=== PATIENT | male | born 1975 | race Two or more races ===

== ENCOUNTER 2019-11-25 12:45 | Emergency (ER) | payer OTHER ==
[~2019-11-25] VITALS: Ht 177.8 cm; Wt 120.2 kg
[2019-11-25] MEDS ORDERED: KETOROLAC TROMETH 30 MG/ML 1ML VIAL IV ONE ×2 (13:00→14:15)
[2019-11-25] MEDS ORDERED: SODIUM CHLORIDE 0.9% 1,000 ML IV ONE ×2 (13:00)
[2019-11-25] MEDS ORDERED: ONDANSETRON HCL 4 MG/2 ML VIAL IV ONE (14:15)
[2019-11-25 15:24] LABS: Basophils # (auto) 0 10 ^3/uL (0-0.2); Basophils % (auto) 0.3 % (0.0-2.0); Eosinophils # (auto) 0.1 10 ^3/uL (0-0.8); Eosinophils % (auto) 1.1 % (0.0-7.0); Hematocrit 46.6 % (41.0-53.0); Hemoglobin 15.9 g/dL (13.5-17.5); Lymphocytes # (auto) 1.8 10 ^3/uL (0.4-5.4); Lymphocytes % (auto) 21.6 % (10.0-50.0); Mean Corpuscular Hemoglobin 31.3 pg (28.0-32.0); Mean Corpuscular Hgb Conc. 34.2 g/dL (32.0-36.0); Mean Corpuscular Volume 91.5 fL (80.0-100.0); Monocytes # (auto) 0.6 10 ^3/uL (0-1.3); Monocytes % (auto) 7.1 % (0.0-12.0); Neutrophils # (auto) 5.7 10 ^3/uL (1.6-8.6); Neutrophils % (auto) 69.9 % (37.0-80.0); Platelet Count (auto) 165 10^3/uL (140-450); Red Blood Cells 5.09 10^6/uL (4.5-5.90); Red Cell Distribution Width 13.5 % (11.8-14.3); White Blood Cell 8.2 10^3/uL (4.4-10.8)
[2019-11-25 16:06] LABS: Albumin 3.2 g/dL (3.4-5.0); Anion Gap 6 (5-15); Blood Urea Nitrogen 11 mg/dL (7-18); Calcium 8.2 mg/dL (8.5-10.1); Carbon Dioxide 25 mmol/L (21-32); Chloride 110 mmol/L (98-107); Glucose 100 mg/dL (74-106); Potassium 3.3 mmol/L (3.5-5.1); Sodium 141 mmol/L (136-145)
[2019-11-25 16:08] LABS: Alanine Aminotransferase 33 U/L (16-61); Aspartate Aminotransferase 20 U/L (15-37); BUN/Creatinine Ratio 9.6; GFR African American 88 mL/min; GFR Non-African American 73 mL/min
[2019-11-25 16:14] LABS: Alkaline Phosphatase 74 U/L (45-117); Bilirubin, Total 0.4 mg/dL (0.2-1.0); Total Protein 6.7 g/dL (6.4-8.2)
[2019-11-25 16:23] VITALS: BP 101/83
[2019-11-25 16:30] LABS: Urine Bacteria FEW /hpf (None Seen); Urine Blood Negative /uL (Negative); Urine Specific Gravity 1.013 (1.001-1.035); Urine WBC 1 /hpf (0 - 3)
== END 2019-11-25 17:29 | disposition home or self-care (01) ==
LOC: EDBD 12:45 → ER 12:45
DX: R10.9 Unspecified abdominal pain (principal); E86.0 Dehydration; E87.6 Hypokalemia; K44.9 Diaphragmatic hernia without obstruction or gangrene; E11.9 Type 2 diabetes mellitus without complications; Z87.442 Personal history of urinary calculi; Z88.6 Allergy status to analgesic agent; Z88.5 Allergy status to narcotic agent
CPT/HCPCS: 36415; 71045; 74176; 80053; 81001; 82962; 84484; 85025; 93005; 96361; 96374; 96375; 99285; J1885; J2405; J7030

== ENCOUNTER 2024-08-28 14:09 | Emergency (ER) | payer MEDICAID, OTHER ==
[~2024-08-28] VITALS: Ht 180.3 cm; Wt 108.0 kg
--- NOTE | 2024-08-28 14:35 | ED.PDOC ---
Silvana. trauma (HPI) HPI Comments THIS IS A 48 YEAR OLD MALE PRESENTING TO THE ED WITH CHIEF COMPLAINT OF FLU-LIKE SYMPTOMS AND FALL. PATIENT REPORTS THAT HE HAS BEEN EXPERIENCING A COUGH WITH ASSOCIATED FEVER, SORE THROAT, AND BODY ACHES FOR THE PAST 2 DAYS. PATIENT RELAYS THAT HE WAS AT [facility] THIS AFTERNOON WHEN HE TRIPPED AND FELL ONTO HIS RIGHT SIDE, CAUSING INJURY TO HIS RIGHT LEG AND BACK OF HIS HEAD. PT IS ABLE TO WALK AND STAND WITH NORMAL GAIT. PATIENT DENIES ANY LOC, SOB, CHEST PAIN, CHILLS, OR N/V. NO OTHER SYMPTOMS REPORTED AT THIS TIME OF CARE. Chief Complaint: Fall Injury Time Seen by MD: 14:28 Reviewed notes: Nurses Notes, Medications, Allergies Allergies: Coded Allergies: Fentanyl (Verified Allergy, Unknown, 11/25/19) Morphine (Verified Allergy, Unknown, 11/25/19) Home Meds Active Scripts Azithromycin (Azithromycin) 500 Mg Tab, 1 TAB PO DAILY, #5 TAB Prov:LEONEL GUTIERREZ 08/28/24 Ibuprofen (Ibuprofen) 800 Mg Tab, 1 TAB PO QID, #30 TAB Prov:LEONEL GUTIERREZ 08/28/24 Information Source: Patient Mode of Arrival: Ambulatory Severity: Moderate Timing: Days Duration: Since onset Prehospital treatment: None Location: Head, (R) Leg Mechanism: Fall Associated signs and symtoms: Headache Past Medical History PAST MEDICAL HISTORY: COPD, DM, HTN, Seizures Surgical History: Denies all surgeries Family History Family History: Reviewed,noncontributory to illness Social History Smoker: Non-Smoker Alcohol: Sober Drugs: Denies Drug Use Lives In: Home Constitutional: reports: fever, others (STEVENS ACHES); denies: chills, diaphoresis, fatigue, malaise, sweats, weakness EENTM: reports: nose congestion, throat pain, throat swelling; denies: blurred vision, double vision, ear bleeding, ear discharge, ear drainage, ear pain, ear ringing, eye pain, eye redness, hearing loss, mouth pain, mouth swelling, nasal discharge, nose bleeding, nose pain, photophobia, tearing, voice changes, others Respiratory: reports: cough; denies: hemoptysis, orthopnea, SOB at rest, shortness of breath, SOB with excertion, stridor, wheezing, others Cardiovascular: denies: chest pain, dizzy spells, diaphoresis, Dyspnea on exertion, edema, irregular heart beat, left arm pain, lightheadedness, palpitations, PND, syncope, others Gastrointestinal: denies: abdomen distended, abdominal pain, blood streaked bowels, constipated, diarrhea, dysphagia, difficulty swallowing, hematemesis, melena, nausea, poor appetite, poor fluid intake, rectal bleeding, rectal pain, vomiting, others Genitourinary: denies: burning, dysuria, flank pain, frequency, hematuria, incontinence, penile discharge, penile sore, pain, testicle pain, testicle swelling, urgency, others Neurological: reports: headache; denies: dizziness, fainting, left sided numbness, left sided weakness, numbness, paresthesia, pre-existing deficit, right sided numbness, right sided weakness, seizure, speech problems, tingling, tremors, weakness, others Musculoskeletal: reports: muscle pain, others (RIGHT LEG PAIN); denies: back pain, gout, joint pain, joint swelling, muscle stiffness, neck pain Integumetry: denies: bruises, change in color, change in hair/nails, dryness, laceration, lesions, lumps, rash, wounds, others Allergic/Immunocompromised: denies: Difficulty Healing, Frequent Infections, Hives, Itching, others Hematologic/Lymphatic: reports: anemia (RIGHT LATERAL LOWER LEG. ); denies: blood clots, easy bleeding, easy bruising, swollen glands, others Endocrine: denies: excessive hunger, excessive sweating, excessive thirst, excessive urination, flushing, intolerance to cold, intolerance to heat, unexplained weight gain, unexplained weight loss, others Psychiatric: denies: anxiety, bipolar disorder, depression, hopeless, panic disorder, schizophrenia, sleepless, suicidal, others All Other Systems: Reviewed and Negative Physical Exam General Appearance: No Apparent Distress, Normal HEENT: Head (MILD CONTUSION ON RIGHT SIDE LOWER SCALP, NO BONY TENDERNESS AND DEFORMITY. ), PERRL/EOMI, Pharyngeal Erythema (TONSILLAR SWELLING, NO EXUDATES. ), TMs Normal Neck: Full Range of Motion, Non-Tender, Normal, Normal Inspection Respiratory: Chest Non-Tender, Lungs Clear, No Accessory Muscle Use, No Respiratory Distress, Normal Breath Sounds Cardiovascular: No Edema, No JVD, No Murmur, No Gallop, Normal Peripheral P ulses, Regular Rate/Rhythm Breast Exam: Deferred Gastrointestinal: No Organomegaly, Non Tender, No Pulsatile Mass, Normal Bowel Sounds, Soft Genitalia: Deferred Pelvic: Deferred Rectal: Deferred Extremities: No calf tenderness, Normal capillary refill, Normal range of motion, No pedal edema, Tender (AND CONTUSION ON RIGHT LATERAL LOWER LEG. ) Musculoskeletal : Apperance: Normal Neurologic: Alert, sandwich peddler II-XII nml as Tested, No Motor Deficits, Normal Affect, Normal Mood, No Sensory Deficits Cerebellar Function: Normal Reflexes: Normal Skin: Dry, Normal Color, Warm Peripheral Pulses: 2+ carotid (R), 2+ carotid (L), 2+ dorsalis pedis (R), 2+ dorsalis pedis (L) Lymphatic: No Adenopathy Was a procedure done? Was a procedure done?: No Differential Diagnosis Multiple Trauma: Closed Head Injury, Fractures, Abrasions, Contusion, Other (ACUTE TONSILLITIS ) X-Ray, Labs, Meds, VS Vital Signs Date Time Temp Pulse Resp B/P (MAP) Pulse Ox O2 Delivery O2 Flow Rate FiO2 08/28/24 15:45 100.9 112 18 115/86 (96) 96 100.9 08/28/24 15:45 112 17 96 Room Air 08/28/24 15:28 100.9 08/28/24 14:23 99.7 118 16 145/96 (112) 97 99.7 Lab Test 08/28/24 14:23 Range/Units Group A Streptococcus Rapid Negative Current Medications Medications (Trade) Dose Ordered Sig/Wendy Route Start Time Stop Time Status Last Admin Acetaminophen (Tylenol Tablet) 1,000 mg ONCE ONCE PO 08/28/24 14:30 08/28/24 14:31 DC 08/28/24 15:28 Ceftriaxone Sodium (Rocephin) 1,000 mg ONCE ONCE IM 08/28/24 15:15 08/28/24 15:16 DC 08/28/24 15:28 [place] [id number] Ph: [phone] DIAGNOSTIC IMAGING Diagnostic Imaging Report : [id number] Signed PATIENT: JOSE ALBERTO RUIZ ACCT: [id number] UNIT: [id number] : 1975 LOC: ER ROOM / BED: / AGE / SEX: 48 / M ADM STATUS: REG ER SERVICE 23 ORDERING PHYSICIAN: LEONEL GUTIERREZ PROCEDURE(s): HWOCT - HEAD WITHOUT CONTRAST REASON: FALL ORDER NUMBER(s): [id number], ACCESSION NUMBER(s): [id number] CT HEAD WITHOUT CONTRAST INDICATION: FALL EXAM DATE: 08/28/2024 02:27 PM COMPARISON: None RADIATION DOSE: CTDIvol: 64 mGy, DLP: 1165 mGy*cm PROCEDURE: CT scans of the head were obtained from the vertex to the skull base. Sagittal and coronal reconstructions were provided. All CT scans at this medical facility are performed using dose modulation techniques as appropriate to a performed exam including the following: Automated exposure control was utilized; adjustment of the MA and/or KV according to p atient size; and use of iterative reconstruction technique. FINDINGS: There is sulcal and ventricular prominence. The brainshows normal morphology and arenas-white matter differentiation, without intracranial hemorrhage, extra-axial fluid collection, mass effect or acute large vessel infarct. The ventricles are normal in size. The basal cisterns are patent. The skull and visible facial bones are intact. Left mastoid effusion. The paranasal sinuses and middle ear cavities are well-aerated. The soft tissues of the scalp are unremarkable. IMPRESSION: No acute intracranial abnormality. ATED BY: DOUGIE ANNA MD DICTATED DATE/TIME: 08/28/241499 SIGNED BY: DOUGIE ANNA MD SIGNED DATE/TIME: 08/28/241499 CC: [place] [id number] Ph: [phone] DIAGNOSTIC IMAGING Diagnostic Imaging Report : [id number] Signed PATIENT: JOSE ALBERTO RUIZ ACCT: [id number] UNIT: [id number] : 1975 LOC: ER ROOM / BED: / AGE / SEX: 48 / M ADM STATUS: REG ER SERVICE 23 ORDERING PHYSICIAN: LEONEL GUTIERREZ PROCEDURE(s): RTBFB - R TIB FIB XRAY REASON: FALL ORDER NUMBER(s): [id number], ACCESSION NUMBER(s): [id number] CLINICAL INDICATION: Pain TECHNIQUE: 2 radiographic views of the right tibia/fibula were obtained. Comparison: None FINDINGS/IMPRESSION: There is no evidence of acute fracture or dislocation. The visualized joint space is well maintained. The alignment is anatomical. There is no radiopaque foreign body. ATED BY: YUMIKO WLIEY MD DICTATED DATE/TIME: 08/28/241503 SIGNED BY: YUMIKO WILEY MD SIGNED DATE/TIME: 08/28/241503 CC: [place] [id number] Ph: [phone] DIAGNOSTIC IMAGING Diagnostic Imaging Report : [id number] Signed PATIENT: JOSE ALBERTO RUIZ ACCT: [id number] UNIT: [id number] : 1975 LOC: ER ROOM / BED: / AGE / SEX: 48 / M ADM STATUS: REG ER SERVICE 23 ORDERING PHYSICIAN: LEONEL GUTIERREZ PROCEDURE(s): CXR1 - CHEST XRAY 1 VIEW REASON: COUGH ORDER NUMBER(s): [id number], ACCESSION NUMBER(s): [id number] EXAM: XY CHEST XRAY 1 VIEW Indication: COUGH Technique: Single frontal view of the chest was obtained Comparison: CHEST PORTABLE on DOS: 11/25/19 FINDINGS: Lines and Tubes: None Lungs: No focal consolidation. Pleura: No effusion. No pneumothorax. Cardiomediastinal contours: Unremarkable Bones: No acute osseous abnormality. IMPRESSION: No acute cardiopulmonary disease. ATED BY: YUMIKO WILEY MD DICTATED DATE/TIME: 08/28/241503 SIGNED BY: YUMIKO WILEY MD SIGNED DATE/TIME: 08/28/241503 CC: X-Ray, Labs, Meds, VS Comment EXTERNAL MEDICAL RECORDS REVIEWED: [NONE] INDEPENDENT HISTORIANS: [NONE] SOCIAL DETERMINANTS OF HEALTH: [NONE] LABS ORDERED: STREP SWAB REVIEWED AND INTERPRETED RESULTS: RIGHT TIB/FIB XR, CT HEAD, CHEST XR IMAGING ORDERED: RIGHT TIB/FIB XR, CT HEAD, CHEST XR TREATMENTS ORDERED: TYLENOL 1G PO AND ROCEPHIN 1GM IM PROCEDURES PERFORMED: NONE CRITICAL CARE TIME: NONE I HAVE DISCUSSED THE PATIENT WITH THE ATTENDING PHYSICIAN DR. SCHOFIELD AND HE AGREES WITH THE PATIENT'S PLAN OF CARE AND DISPOSITION. BASED ON HISTORY OF PRESENT ILLNESS, AND PHYSICAL EXAM, PATIENT WILL BE DISCHARGED HOME. DISCUSSED PLAN FOR DISCHARGE HOME WITH RX AZITHROMYCIN AND MOTRIN 600MG. MEDICATION WARNINGS GIVEN. SHARED DECISION MAKING: DISCUSSED WITH PATIENT THAT THEIR WORKUP WAS NORMAL. PATIENT INSTRUCTED TO FOLLOW UP WITH PRIMARY CARE PROVIDER IN 1-2 DAYS FOR RE- EVALUATION OF SYMPTOMS. PATIENT VERBALIZES UNDERSTANDING TO RETURN TO ED FOR NEW OR WORSENING SYMPTOMS OR IF FOLLOW UP WITH PCP CANNOT BE OBTAINED. PATIENT FEELS COMFORTABLE GOING HOME AT THIS TIME. ALL QUESTIONS ADDRESSED AT TIME OF DISCHARGE. Images Reviewed?: Images reviewed and evaluated by me Time of 1ST Reevaluation: 15:28 Reevaluation 1ST: Improved Patient Education/Counseling: Diagnosis, Treatment, Need For Follow Up Family Education/Counseling: Diagnosis, Treatment, No Family Present Medical Screening: No EMC Exist At This Time Departure 1 Departure Time of Disposition: 16:00 Impression: Primary Impression: Scalp contusion Qualified Codes: S00.03XA - Contusion of scalp, initial encounter Additional Impressions: Contusion of right lower leg Qualified Codes: S80.11XA - Contusion of right lower leg, initial encounter Acute tonsillitis Qualified Codes: J03.90 - Acute tonsillitis, unspecified Disposition: 01 HOME / SELF CARE / HOMELESS Condition: Stable Additional Instructions: FOLLOW-UP WITH PCP IN 1 TO 2 DAYS. TAKE MEDICATIONS PRESCRIBED. RETURN TO ED FOR ANY NEW OR WORSENING SYMPTOMS. e-Prescriptions Azithromycin (Azithromycin) 500 Mg Tab 1 TAB PO DAILY, #5 TAB Prov: LEONEL GUTIERREZ 08/28/24 Ibuprofen (Ibuprofen) 800 Mg Tab 1 TAB PO QID, #30 TAB Prov: LEONEL GUTIERREZ 08/28/24 Discharged With: Self Critical Care Note Critical Care Time?: No Stability Stability form required: No Heart Score Heart Score: Heart Score Response (Comments) Value History N/A 0 EKG N/A 0 Age N/A 0 Risk Factors N/A 0 Troponin N/A 0 Total 0 I personally scribed for LEONEL GUTIERREZ ([email or web address]) on 08/28/24 at 14:35. Electronically submitted by Kj Qureshi ([email or web address]). I personally scribed for LEONEL GUTIERREZ ([email or web address]) on 08/28/24 at 15:10. Electronically submitted by Kj Qureshi ([email or web address]). I personally scribed for LEONEL GUTIERREZ ([email or web address]) on 08/28/24 at 15:21. Electronically submitted by Kj Qureshi ([email or web address]). LEONEL GUTIERREZ Aug 28, 2024 14:35
[2024-08-28 14:46] LABS: Rapid Strep A Screen-Throat Negative
--- NOTE | 2024-08-28 15:03 | DVH ---
CT HEAD WITHOUT CONTRAST INDICATION: FALL EXAM DATE: 08/28/2024 02:27 PM COMPARISON: None RADIATION DOSE: CTDIvol: 64 mGy, DLP: 1165 mGy*cm PROCEDURE: CT scans of the head were obtained from the vertex to the skull base. Sagittal and coronal reconstructions were provided. All CT scans at this medical facility are performed using dose modulation techniques as appropriate t o a performed exam including the following: Automated exposure control was utilized; adjustment of th e MA and/or KV according to patient size; and use of iterative reconstruction technique. FINDINGS: There is sulcal and ventricular prominence. The brainshows normal morphology and arenas-whi te matter differentiation, without intracranial hemorrhage, extra-axial fluid collection, mass effect or acute large vessel infarct. The ventricles are normal in size. The basal cisterns are patent. The skull and visible facial bones are intact. Left mastoid effusion. The paranasal sinuses and middle e ar cavities are well-aerated. The soft tissues of the scalp are unremarkable. IMPRESSION: No acute intracranial abnormality.
--- NOTE | 2024-08-28 15:07 | DVH ---
CLINICAL INDICATION: Pain TECHNIQUE: 2 radiographic views of the right tibia/fibula were obtained. Comparison: None FINDINGS/IMPRESSION: There is no evidence of acute fracture or dislocation. The visualized joint space is well maintained. The alignment is anatomical. There is no radiopaque foreign body.
--- NOTE | 2024-08-28 15:07 | DVH ---
EXAM: XY CHEST XRAY 1 VIEW Indication: COUGH Technique: Single frontal view of the chest was obtained Comparison: CHEST PORTABLE on DOS: 11/25/19 FINDINGS: Lines and Tubes: None Lungs: No focal consolidation. Pleura: No effusion. No pneumothorax. Cardiomediastinal contours: Unremarkable Bones: No acute osseous abnormality. IMPRESSION: No acute cardiopulmonary disease.
[2024-08-28] MEDS: LIDOCAINE 1% HCL (LOCAL ANESTH.) INJ 20ML MDV ONE (15:28)
[2024-08-28] MEDS: ACETAMINOPHEN 325 MG TAB PO ONE (15:28)
[2024-08-28] MEDS: cefTRIAXone SOD 1,000 MG VL IM ONE (15:28)
[2024-08-28] MEDS ORDERED: AZIT500T66 PO (15:32)
[2024-08-28] MEDS ORDERED: IBUP-1456 PO (15:32)
[2024-08-28 15:45] VITALS: BP 115/86; PULSE 112; RESP 17; TEMP 100.9; O2SAT 96
[2024-08-28] MEDS ORDERED: ALBU108A5 IN (23:34)
== END 2024-08-28 15:56 | disposition home or self-care (01) ==
LOC: ER 14:09
DX: S00.03XA Contusion of scalp, initial encounter (principal); S80.11XA Contusion of right lower leg, initial encounter; J03.90 Acute tonsillitis, unspecified; J44.9 Chronic obstructive pulmonary disease, unspecified; E11.9 Type 2 diabetes mellitus without complications; I10 Essential (primary) hypertension; Z88.5 Allergy status to narcotic agent; Z79.899 Other long term (current) drug therapy; W01.0XXA Fall on same level from slipping, tripping and stumbling without subsequent striking against object, initial encounter; Y93.89 Activity, other specified; Y92.89 Other specified places as the place of occurrence of the external cause; Y99.8 Other external cause status
CPT/HCPCS: 70450; 71045; 73590; 87070; 87880; 96372; 99285; J0696; J2003

== ENCOUNTER 2024-08-28 22:05 | Emergency (ER) | payer MEDICAID ==
[~2024-08-28] VITALS: Ht 180.3 cm; Wt 108.0 kg
[~2024-08-28 22:05] MED LIST: AZIT500T66 PO; IBUP-1456 PO
--- NOTE | 2024-08-28 22:52 | ED.PDOC ---
SOB-HPI HPI Comments PATIENT C/O FLU LIKE SYMPTOMS, COUGH, SOB, BODY ACHES. WAS SEEN HERE TODAY, PRESCRIBED A Z PACK, GIVEN ROCEPHIN SHOT. PT STATES SYMPTOMS HAVE NOT IMPROVED. Chief Complaint: Flu like Time Seen by MD: 22:21 Reviewed notes: Nurses Notes, Medications, Allergies Information Source: Patient Mode of Arrival: Ambulatory Past Medical History PAST MEDICAL HISTORY: COPD, DM, HTN, Seizures Surgical History: Denies all surgeries Family History Family History: Reviewed,noncontributory to illness Social History Smoker: Non-Smoker Alcohol: Sober Drugs: Denies Drug Use Lives In: Home Constitutional: denies: chills, diaphoresis, fatigue, fever, malaise, sweats, weakness, others EENTM: denies: blurred vision, double vision, ear bleeding, ear discharge, ear drainage, ear pain, ear ringing, eye pain, eye redness, hearing loss, mouth pain, mouth swelling, nasal discharge, nose bleeding, nose congestion, nose pain, photophobia, tearing, throat pain, throat swelling, voice changes, others Respiratory: reports: cough, wheezing; denies: hemoptysis, orthopnea, SOB at rest, shortness of breath, SOB with excertion, stridor, others Cardiovascular: denies: chest pain, dizzy spells, diaphoresis, Dyspnea on exertion, edema, irregular heart beat, left arm pain, lightheadedness, palpitations, PND, syncope, others Gastrointestinal: denies: abdomen distended, abdominal pain, blood streaked bowels, constipated, diarrhea, dysphagia, difficulty swallowing, hematemesis, melena, nausea, poor appetite, poor fluid intake, rectal bleeding, rectal pain, vomiting, others Genitourinary: denies: burning, dysuria, flank pain, frequency, hematuria, incontinence, penile discharge, penile sore, pain, testicle pain, testicle swelling, urgency, others Neurological: denies: dizziness, fainting, headache, left sided numbness, left sided weakness, numbness, paresthesia, pre-existing deficit, right sided numbness, right sided weakness, seizure, speech problems, tingling, tremors, weakness, others Musculoskeletal: denies: back pain, gout, joint pain, joint swelling, muscle pain, muscle stiffness, neck pain, others Integumetry: denies: bruises, change in color, change in hair/nails, dryness, laceration, lesions, lumps, rash, wounds, others Allergic/Immunocompromised: denies: Difficulty Healing, Frequent Infections, Hives, Itching, others Hematologic/Lymphatic: denies: anemia, blood clots, easy bleeding, easy bruising, swollen glands, others Endocrine: denies: excessive hunger, excessive sweating, excessive thirst, excessive urination, flushing, intolerance to cold, intolerance to heat, unexplained weight gain, unexplained weight loss, others Psychiatric: denies: anxiety, bipolar disorder, depression, hopeless, panic disorder, schizophrenia, sleepless, suicidal, others Physical Exam General Appearance: No Apparent Distress, Normal HEENT: Normal ENT Inspection, Pharynx Normal, TMs Normal Neck: Full Range of Motion, Non-Tender Respiratory: Chest Non-Tender, No Accessory Muscle Use, No Respiratory Distress, Wheezing Cardiovascular: No Murmur, Normal Peripheral Pulses, Regular Rate/Rhythm Breast Exam: Deferred Gastrointestinal: Non Tender, Soft Genitalia: Deferred Pelvic: Deferred Rectal: Deferred Extremities: Normal range of motion Musculoskeletal : Apperance: Normal Neurologic: Alert, No Motor Deficits, Normal Affect, Normal Mood, No Sensory Deficits Cerebellar Function: Normal Reflexes: Normal Skin: Dry, Normal Color, Warm Lymphatic: No Adenopathy Was a procedure done? Was a procedure done?: No Differential Dx Differential Diagnosis: Asthma, Bronchitis, Pneumonia, Allergic Rhinitis, P haryngitis, URI X-Ray, Labs, Meds, VS Vital Signs Date Time Temp Pulse Resp B/P (MAP) Pulse Ox O2 Delivery O2 Flow Rate FiO2 08/28/24 23:42 98.2 90 17 121/89 (100) 97 98.2 08/28/24 23:42 90 17 97 Room Air 08/28/24 23:12 18 98 Room Air* 0 21 08/28/24 22:15 98.9 86 18 126/88 (101) 97 98.9 X-Ray, Labs, Meds, VS Comment Patient given a duo neb reports some improvement requesting discharge at this time. Chest x-ray shows no acute cardiopulmonary findings. We will script trial of albuterol advised to continue the Z-Miguel. Rest increase p.o. fluids with electrolytes. Follow up with your PCP within 2-3 days as necessary. ER return precautions given patient indicates understanding agrees with discharge plan of care Time of 1ST Reevaluation: 22:45 Reevaluation 1ST: Unchanged Time of 2ND Reevaluation: 23:34 Reevaluation 2ND: Improved Patient Education/Counseling: Diagnosis, Treatment, Prognosis, Need For Follow Up Family Education/Counseling: No Family Present SEPSIS Sepsis Screen Date sepsis recognized/suspect: Aug 28, 2024 Time Sepsis recognized/suspect: 2214 Recent Procedure: No On Antibiotic Therapy: No Respiratory Rate >20: No Heart Rate >90: No Temp<36 C (96.8 F) or >38.3 C: No SBP <90 or MAP <65 mmHG: No New Acute Mental Status Change: No Is the patient on CPAP, BIPAP,: No Physician Orders Med Neb Initial Treatment (08/28/24 22:21) Vital Signs Date Time Temp Pulse Resp B/P (MAP) Pulse Ox O2 Delivery O2 Flow Rate FiO2 08/28/24 23:42 98.2 90 17 121/89 (100) 97 98.2 08/28/24 23:42 90 17 97 Room Air 08/28/24 23:12 18 98 Room Air* 0 21 08/28/24 22:15 98.9 86 18 126/88 (101) 97 98.9 Departure 1 Departure Time of Disposition: 23:31 Impression: Primary Impression: Bronchitis Disposition: 01 HOME / SELF CARE / HOMELESS Condition: Stable e-Prescriptions Albuterol Sulfate (Albuterol Sulfate Hfa) 108 Mcg/Act Aer 108 MCG IN Q4HP PRN for 14 Days, #1 INHALER Prov: DOLORES MAYA 08/28/24 Discharged With: Self Critical Care Note Critical Care Time?: No Stability Stability form required: No Heart Score Heart Score: Heart Score Response (Comments) Value History N/A 0 EKG N/A 0 Age 45-64 1 Risk Factors N/A 0 Troponin N/A 0 Total 1 DOLORES MAYA Aug 28, 2024 22:52
[2024-08-28] MEDS: ALBUTEROL SULF 2.5 MG/0.5ML(0.5%) NEB SOLN NEB ONE (23:09)
[2024-08-28] MEDS: IPRATROPIUM BROM 0.5 MG/2.5ML INH SOL NEB ONE (23:10)
[2024-08-28] MEDS ORDERED: ALBU108A5 IN (23:34)
[2024-08-28 23:42] VITALS: BP 121/89; PULSE 90; RESP 17; TEMP 98.2; O2SAT 97
== END 2024-08-28 23:46 | disposition home or self-care (01) ==
LOC: ER 22:05
DX: J44.89 Other specified chronic obstructive pulmonary disease (principal); I10 Essential (primary) hypertension; E11.9 Type 2 diabetes mellitus without complications
CPT/HCPCS: 94640

== ENCOUNTER 2024-08-29 03:07 | Emergency (ER) | payer MEDICAID ==
[~2024-08-29 03:07] MED LIST changes: +ALBU108A5 IN
== END 2024-08-29 03:17 | disposition left against medical advice (07) ==
LOC: ER 03:07
DX: R50.9 Fever, unspecified (principal); Z53.21 Procedure and treatment not carried out due to patient leaving prior to being seen by health care provider

== ENCOUNTER 2025-01-06 09:06 | Emergency (ER) | payer MEDICAID ==
[~2025-01-06] VITALS: Ht 180.3 cm; Wt 105.2 kg
[~2025-01-06 09:06] MED LIST changes: -ALBU108A5 IN; +ALPR1TAB2 PO; +DOXY1CAP57 PO; +HYDR-4902 PO; +LINE1TAB6 PO; +TAMS-35 PO
[2025-01-06 09:09] VITALS: BP 126/88; PULSE 71; RESP 18; TEMP 98.5; O2SAT 98
--- NOTE | 2025-01-06 10:02 | ED.PDOC ---
History of Present Illness HPI Comments 49 year old male with PMHx HTN, DM presents to the ED with a chief complaint of wound check onset today. Patient states he has been experiencing wound to LT buttock, had an abscess that was drained and cultured, was discharged from [facility] on 12/30/24, was set up with home health nurse in [place], [place], decided to leave because his PCP is in [place]. Patient came to ED requesting to speak with medical social consultant, set up a different home health care. Denies fever, chills, nausea, vomiting, diarrhea, abdominal pain, headache, dizziness, chest pain, shortness of breath. No other symptoms or modifying factors present at this time. Chief Complaint: Wound Check Time Seen by MD: 09:45 Reviewed Notes: Medications, Allergies Allergies: Coded Allergies: Morphine (Verified Allergy, Severe, 08/09/24) Shellfish Allergy (Verified Allergy, Unknown, 11/03/24) Uncoded Allergies: contrast (Allergy, Unknown, 10/18/24) Home Meds Active Scripts Doxycycline Monohydrate (Doxycycline Monohydrate) 100 Mg Cap, 1 CAP PO BID for 7 Days, #28 CAP Prov:CHERY MCKEON MD 12/15/24 Hydrocodone-Acetaminophen (Hydrocodone Bitartrate/AC 5-325 mg) 1 Tab Tab, 1 TAB PO TIDP PRN for 7 Days, #21 TAB 0 Refills Prov:JANET GOOD MD 11/05/24 Hydrocodone-Acetaminophen (Hydrocodone Bitartrate/AC 5-325 mg) 1 Tab Tab, 1 TAB PO Q4HP PRN, #20 TAB Prov:KE PARKER MD 11/01/24 Alprazolam (Xanax) 1 Mg Tab, 1 TAB PO BID PRN, #30 TAB Prov:SIVA TINOCO MD 10/22/24 Ibuprofen (Ibuprofen) 800 Mg Tab, 1 TAB PO TID, #30 TAB Prov:LEONEL GUTIERREZ 10/01/24 Reported Medications Prednisone (Prednisone) 20 Mg Tab, 2 TAB PO DAILY 10/27/24 Albuterol Sulfate (Albuterol Sulfate Hfa) 108 Mcg/Act Aer, 2 PUFF INH Q6HPRN PRN for wheezing 10/27/24 Levetiracetam (Levetiracetam) 250 Mg Tab, 1 PO BID 10/27/24 Levetiracetam (Levetiracetam) 500 Mg Tab, 1 TAB PO BID 10/08/24 Albuterol Sulfate (Albuterol Sulfate) 2 Mg Tab, 2 MG PO Q6HP PRN for SHORTNESS OF BREATH, MG 08/20/24 Information Source: Patient Mode of Arrival: Ambulatory Severity: Moderate Timing: Hours Duration: Since onset Prehospital treatment: None Past Medical History PAST MEDICAL HISTORY: Asthma, COPD, DM, HTN, Seizures Surgical History: Cholecystectomy, Hernia Repair Family History Family History: Reviewed,noncontributory to illness, Family hx of heart taz Social History Smoker: Non-Smoker Alcohol: Denies ETOH Use Drugs: Denies Drug Use Lives In: Assisted Care Constitutional: denies: chills, diaphoresis, fatigue, fever, malaise, sweats, weakness, others EENTM: denies: blurred vision, double vision, ear bleeding, ear discharge, ear drainage, ear pain, ear ringing, eye pain, eye redness, hearing loss, mouth pain, mouth swelling, nasal discharge, nose bleeding, nose congestion, nose pain, photophobia, tearing, throat pain, throat swelling, voice changes, others Respiratory: denies: cough, hemoptysis, orthopnea, SOB at rest, shortness of breath, SOB with excertion, stridor, wheezing, others Cardiovascular: denies: chest pain, dizzy spells, diaphoresis, Dyspnea on exer tion, edema, irregular heart beat, left arm pain, lightheadedness, palpitations, PND, syncope, others Gastrointestinal: denies: abdomen distended, abdominal pain, blood streaked bowels, constipated, diarrhea, dysphagia, difficulty swallowing, hematemesis, melena, nausea, poor appetite, poor fluid intake, rectal bleeding, rectal pain, vomiting, others Genitourinary: denies: burning, dysuria, flank pain, frequency, hematuria, incontinence, penile discharge, penile sore, pain, testicle pain, testicle swelling, urgency, others Neurological: denies: dizziness, fainting, headache, left sided numbness, left sided weakness, numbness, paresthesia, pre-existing deficit, right sided numbness, right sided weakness, seizure, speech problems, tingling, tremors, weakness, others Musculoskeletal: denies: back pain, gout, joint pain, joint swelling, muscle pain, muscle stiffness, neck pain, others Integumetry: reports: wounds (buttock); denies: bruises, change in color, change in hair/nails, dryness, laceration, lesions, lumps, rash, others Allergic/Immunocompromised: denies: Difficulty Healing, Frequent Infections, Hives, Itching, others Hematologic/Lymphatic: denies: anemia, blood clots, easy bleeding, easy bruising, swollen glands, others Endocrine: denies: excessive hunger, excessive sweating, excessive thirst, excessive urination, flushing, intolerance to cold, intolerance to heat, unexplained weight gain, unexplained weight loss, others Psychiatric: denies: anxiety, bipolar disorder, depression, hopeless, panic disorder, schizophrenia, sleepless, suicidal, others All Other Systems: Reviewed and Negative Physical Exam General Appearance: Moderate Distress, Normal HEENT: Normal ENT Inspection, Pharynx Normal, TMs Normal Neck: Full Range of Motion, Non-Tender, Normal, Normal Inspection Respiratory: Chest Non-Tender, Lungs Clear, No Accessory Muscle Use, No Respiratory Distress, Normal Breath Sounds Cardiovascular: No Edema, No JVD, No Murmur, No Gallop, Normal Peripheral Pulses, Regular Rate/Rhythm Breast Exam: Deferred Gastrointestinal: No Organomegaly, Non Tender, No Pulsatile Mass, Normal Bowel Sounds, Soft Genitalia: Deferred Pelvic: Deferred Rectal: Deferred Extremities: No calf tenderness, Normal capillary refill, Normal inspection, Normal range of motion, Non-tender, No pedal edema Musculoskeletal : Apperance: Normal Neurologic: Alert, panel maker II-XII nml as Tested, No Motor Deficits, Normal Affect, Normal Mood, No Sensory Deficits Cerebellar Function: Normal Reflexes: Normal Skin: Dry, Normal Color, Warm Peripheral Pulses: 3+ Radial (R), 3+ Radial (L) Lymphatic: No Adenopathy Was a procedure done? Was a procedure done?: No Differential Dx Considerations may include: Wound care X-Ray, Labs, Meds, VS Vital Signs Date Time Temp Pulse Resp B/P (MAP) Pulse Ox O2 Delivery O2 Flow Rate FiO2 01/06/25 09:09 98.5 71 18 126/88 98 98.5 Patient alert. Vitals stable. Answering questions. Ambulating. Has been here many times for same condition. No sign of any severe infection. Patient does not take care himself. For the risk of future injury he was started on antibiotics for prevention. Was given prescription of amoxicillin clindamycin antibiotic. Was told to follow up with his primary care physician. Was told to come back if there is any problem. Time of 1ST Reevaluation: 10:15 Reevaluation 1ST: Unchanged Patient Education/Counseling: Diagnosis, Treatment, Prognosis Family Education/Counseling: No Family Present SEPSIS Sepsis Screen Date sepsis recognized/suspect: Jan 06, 2025 Time Sepsis recognized/suspect: 915 Recent Procedure: Yes On Antibiotic Therapy: Yes Respiratory Rate >20: No Heart Rate >90: No Temp<36 C (96.8 F) or >38.3 C: No SBP <90 or MAP <65 mmHG: No New Acute Mental Status Change: No Is the patient on CPAP, BIPAP,: No Vital Signs Date Time Temp Pulse Resp B/P (MAP) Pulse Ox O2 Delivery O2 Flow Rate FiO2 01/06/25 09:09 98.5 71 18 126/88 98 98.5 Departure 1 Departure Time of Disposition: 10:28 Impression: Primary Impression: Cellulitis Qualified Codes: L03.317 - Cellulitis of buttock Disposition: 01 HOME / SELF CARE / HOMELESS Condition: Good e-Prescriptions Clindamycin Hcl (Clindamycin Hcl) 300 Mg Cap 1 CAP PO TID, #30 CAP Prov: BALA RAMOS MD 01/06/25 Amoxicillin Trihydrate (Amoxicillin) 500 Mg Cap 1 CAP PO TID for 10 Days, #30 CAP Prov: BALA RAMOS MD 01/06/25 Discharged With: Self Critical Care Note Critical Care Time?: No Stability Stability form required: No Heart Score Heart Score: Heart Score Response (Comments) Value History N/A 0 EKG N/A 0 Age N/A 0 Risk Factors N/A 0 Troponin N/A 0 Total 0 I personally scribed for BALA RAMOS MD ([email or web address]) on 01/06/25 at 10:02. Electronically submitted by Jana Romo ([email or web address]). I personally scribed for BALA RAMOS [email or web address]) on 01/06/25 at 10:03. Electronically submitted by Jana Romo [email or web address]). BALA RAMOS MD Jan 06, 2025 10:02
[2025-01-06] MEDS ORDERED: AMOX500C2 PO (10:29)
[2025-01-06] MEDS ORDERED: CLIN1CAP70 PO (10:29)
== END 2025-01-06 12:19 | disposition left against medical advice (07) ==
LOC: EDUNIT# 09:06 → ER 09:06
DX: L03.317 Cellulitis of buttock (principal); I10 Essential (primary) hypertension; E11.9 Type 2 diabetes mellitus without complications; J44.89 Other specified chronic obstructive pulmonary disease; Z79.899 Other long term (current) drug therapy; Z98.890 Other specified postprocedural states; Z90.49 Acquired absence of other specified parts of digestive tract; Z88.5 Allergy status to narcotic agent; Z79.52 Long term (current) use of systemic steroids; Z79.1 Long term (current) use of non-steroidal anti-inflammatories (NSAID)

== ENCOUNTER 2025-01-06 17:47 | Emergency (ER) | payer MEDICAID ==
[~2025-01-06] VITALS: Ht 180.3 cm; Wt 107.7 kg
[~2025-01-06 17:47] MED LIST changes: +AMOX500C2 PO; +CLIN1CAP70 PO
[2025-01-06] MEDS: KETOROLAC TROMETH 30 MG/ML 1ML VIAL IV ONE (19:45)
--- NOTE | 2025-01-06 19:47 | ED.PDOC ---
GI ASSESSMENT HPI Comments 49-year-old male presents to ER with complaints of flank pain x1 day. Patient reports that he has been experiencing bilateral flank pain, intermittent nausea, dysuria and inability to urinate since 1:00 a.m. this morning. He rates his current pain a 10/10. Denies use of medications for current symptoms and states he does have history of a left-sided kidney stone. Patient was recently discharged from ER here earlier today and failed to mention these symptoms at that time. Patient also denies need for social work consult. Denies fever, body aches, chills, vomiting, night sweats, abdominal/pelvic pain, further changes in urination or any further symptoms/complaints Chief Complaint: Wound Check Time Seen by MD: 18:09 Primary Care Provider: UNKNOWN Reviewed Notes: Nurses Notes, Medications, Allergies Allergies: Coded Allergies: Morphine (Verified Allergy, Severe, 08/09/24) Shellfish Allergy (Verified Allergy, Unknown, 11/03/24) Uncoded Allergies: contrast (Allergy, Unknown, 10/18/24) Home Meds Active Scripts Clindamycin Hcl (Clindamycin Hcl) 300 Mg Cap, 1 CAP PO TID, #30 CAP Prov:BALA RAMOS MD 01/06/25 Amoxicillin Trihydrate (Amoxicillin) 500 Mg Cap, 1 CAP PO TID for 10 Days, #30 CAP Prov:BALA RAMOS MD 01/06/25 Doxycycline Monohydrate (Doxycycline Monohydrate) 100 Mg Cap, 1 CAP PO BID for 7 Days, #28 CAP Prov:CHERY MCKEON MD 12/15/24 Hydrocodone-Acetaminophen (Hydrocodone Bitartrate/AC 5-325 mg) 1 Tab Tab, 1 TAB PO TIDP PRN for 7 Days, #21 TAB 0 Refills Prov:JANET GOOD MD 11/05/24 Hydrocodone-Acetaminophen (Hydrocodone Bitartrate/AC 5-325 mg) 1 Tab Tab, 1 TAB PO Q4HP PRN, #20 TAB Prov:KE PARKER MD 11/01/24 Alprazolam (Xanax) 1 Mg Tab, 1 TAB PO BID PRN, #30 TAB Prov:SIVA TINOCO MD 10/22/24 Ibuprofen (Ibuprofen) 800 Mg Tab, 1 TAB PO TID, #30 TAB Prov:BRENDAYINHERB DARSHAN 10/01/24 Reported Medications Prednisone (Prednisone) 20 Mg Tab, 2 TAB PO DAILY 10/27/24 Albuterol Sulfate (Albuterol Sulfate Hfa) 108 Mcg/Act Aer, 2 PUFF INH Q6HPRN PRN for wheezing 10/27/24 Levetiracetam (Levetiracetam) 250 Mg Tab, 1 PO BID 10/27/24 Levetiracetam (Levetiracetam) 500 Mg Tab, 1 TAB PO BID 10/08/24 Albuterol Sulfate (Albuterol Sulfate) 2 Mg Tab, 2 MG PO Q6HP PRN for SHORTNESS OF BREATH, MG 08/20/24 Mode of Arrival: Ambulatory Past Medical History PAST MEDICAL HISTORY: Asthma, COPD, DM, HTN, Kidney Stones, Seizures Surgical History: Cholecystectomy, Hernia Repair Family History Family History: Unknown, Family hx of heart taz Social History Smoker: Non-Smoker Alcohol: Denies ETOH Use Drugs: Denies Drug Use Lives In: Assisted Care Constitutional: denies: chills, diaphoresis, fatigue, fever, malaise, sweats, weakness, others EENTM: denies: blurred vision, double vision, ear bleeding, ear discharge, ear drainage, ear pain, ear ringing, eye pain, eye redness, hearing loss, mouth pain, mouth swelling, nasal discharge, nose bleeding, nose congestion, nose pain, photophobia, tearing, throat pain, throat swelling, voice changes, others Respiratory: denies: cough, hemoptysis, orthopnea, SOB at rest, shortness of breath, SOB with excertion, stridor, wheezing, others Cardiovascular: denies: chest pain, dizzy spells, diaphoresis, Dyspnea on e xertion, edema, irregular heart beat, left arm pain, lightheadedness, palpitations, PND, syncope, others Gastrointestinal: reports: others (As stated in HPI) Genitourinary: reports: others (As stated in HPI) Neurological: denies: dizziness, fainting, headache, left sided numbness, left sided weakness, numbness, paresthesia, pre-existing deficit, right sided numbness, right sided weakness, seizure, speech problems, tingling, tremors, weakness, others Musculoskeletal: denies: back pain, gout, joint pain, joint swelling, muscle pain, muscle stiffness, neck pain, others Integumetry: denies: bruises, change in color, change in hair/nails, dryness, laceration, lesions, lumps, rash, wounds, others Allergic/Immunocompromised: denies: Difficulty Healing, Frequent Infections, Hives, Itching, others Hematologic/Lymphatic: denies: anemia, blood clots, easy bleeding, easy bruising, swollen glands, others Endocrine: denies: excessive hunger, excessive sweating, excessive thirst, excessive urination, flushing, intolerance to cold, intolerance to heat, unexplained weight gain, unexplained weight loss, others Psychiatric: denies: anxiety, bipolar disorder, depression, hopeless, panic disorder, schizophrenia, sleepless, suicidal, others Physical Exam General Appearance: No Apparent Distress, Obese HEENT: PERRL/EOMI Neck: Full Range of Motion, Non-Tender, Normal Respiratory: Chest Non-Tender, Lungs Clear, No Accessory Muscle Use, No Respiratory Distress, Normal Breath Sounds Cardiovascular: No Murmur, No Gallop, Regular Rate/Rhythm Breast Exam: Deferred Gastrointestinal: Non Tender, No Pulsatile Mass, Soft Genitalia: Deferred Pelvic: Deferred Rectal: Deferred Extremities: Normal capillary refill, Normal range of motion Musculoskeletal : Extremity Location: Back (Slight TTP to bilateral flanks noted. No CVA tenderness noted bilaterally) Neurologic: Alert, biotechnologist II-XII nml as Tested, No Motor Deficits, Normal Affect, Normal Mood, No Sensory Deficits Cerebellar Function: Normal Reflexes: Normal Skin: Dry, Normal Color, Warm Peripheral Pulses: 2+ Radial (R), 2+ Radial (L), 2+ Brachial (R), 2+ Brachial (L) Lymphatic: No Adenopathy Was a procedure done? Was a procedure done?: No Sedation Sedation?: No GI differential Dx Differential Diagnosis: GI hemorrhage, Ischemic Bowel, Trauma intraabdominal, Urinary Obstruction, UTI, Urolithiasis X-Ray, Labs, Meds, VS Vital Signs Date Time Temp Pulse Resp B/P (MAP) Pulse Ox O2 Delivery O2 Flow Rate FiO2 01/06/25 20:29 98.3 63 18 108/74 (85) 95 98.3 01/06/25 17:56 97.5 78 16 131/80 100 97.5 Lab Test 01/06/25 21:00 01/06/25 19:58 Range/Units Urine Color Yellow Yellow Urine Clarity Clear Clear Urine pH 6.0 5.0-9.0 Urine Specific [place] 1.021 1.001-1.035 Urine Protein Negative Negative Urine Ketones Trace Negative Urine Blood Negative Negative /uL Urine Nitrite Negative Negative Urine Bilirubin Negative Negative Urine Urobilinogen Normal Negative mg/dL Urine Leukocyte Esterase Negative Negative /uL Urine RBC 2 0 - 3 /hpf Urine Microscopic WBC 5 H 0-3 /HPF Urine Squamous Epithelial Cells Few <5 /hpf Urine Bacteria None seen None Seen /hpf Urine Mucus Few None Seen Urine Glucose Normal Normal mg/dL White Blood Count 7.5 4.4-10.8 10^3/uL Red Blood Count 4.90 4.5-5.90 10^6/uL Hemoglobin 15.5 13.5-17.5 g/dL Hematocrit 44.3 41.0-53.0 % Mean Corpuscular Volume 90.4 80.0-100.0 fL Mean Corpuscular Hemoglobin 31.6 28.0-32.0 pg Mean Corpuscular Hemoglobin Concent 35.0 32.0-36.0 g/dL Red Cell Distribution Width 13.2 11.8-14.3 % Platelet Count 177 140-450 10^3/uL Mean Platelet Volume 9.4 6.9-10.8 fL Neutrophils (%) (Auto) 60.0 37.0-80.0 % Lymphocytes (%) (Auto) 29.3 10.0-50.0 % Monocytes (%) (Auto) 7.7 0.0-12.0 % Eosinophils (%) (Auto) 2.6 0.0-7.0 % Basophils (%) (Auto) 0.4 0.0-2.0 % Neutrophils # (Auto) 4.5 1.6-8.6 10 ^3/uL Lymphocytes # (Auto) 2.2 0.4-5.4 10 ^3/uL Monocytes # (Auto) 0.6 0-1.3 10 ^3/uL Eosinophils # (Auto) 0.2 0-0.8 10 ^3/uL Basophils # (Auto) 0 0-0.2 10 ^3/uL Nucleated Red Blood Cells 0.2 % Sodium Level 146 H 136-145 mmol/L Potassium Level 4.0 3.5-5.1 mmol/L Chloride Level 109 H 98-107 mmol/L Carbon Dioxide Level 28 20-31 mmol/L Anion Gap 9 5-15 Blood Urea Nitrogen 12 9-23 mg/dL Creatinine 1.24 0.700-1.30 mg/dL Glomerular Filtration Rate Calc 70 >90 mL/min BUN/Creatinine Ratio 9.7 L 10.0-20.0 Serum Glucose 98 74-106 mg/dL Calcium Level 9.5 8.7-10.4 mg/dL Current Medications Medications (Trade) Dose Ordered Sig/Wendy Route Start Time Stop Time Status Last Admin Ketorolac Tromethamine (Toradol Injection) 30 mg ONCE ONCE IV 01/06/25 19:45 01/06/25 19:46 DC 01/06/25 19:45 Ondansetron HCl (Zofran Po) 4 mg ONCE ONCE PO 01/06/25 19:45 01/06/25 19:46 DC 01/06/25 20:30 Sodium Chloride 1,000 ml @ 1,000 mls/hr Q1H ONCE IV 01/06/25 20:30 01/06/25 21:29 DC 01/06/25 20:36 PATIENT: JOSE ALBERTO RUIZ ACCT: [id number] UNIT: [id number] : 1975 LOC: ER ROOM / BED: / AGE / SEX: 49 / M ADM STATUS: REG ER SERVICE 32 ORDERING PHYSICIAN: LISBETH CESPEDES PROCEDURE(s): ABPL - CT AB PEL WO CON-NO ORAL OR IV REASON: bilateral flank pain ORDER NUMBER(s): [id number], ACCESSION NUMBER(s): [id number] CLINICAL HISTORY: bilateral flank pain TECHNIQUE: CT of the abdomen and pelvis was performed without intravenous contrast. This exam was performed according to our departmental dose optimization program. Up-to-date CT equipment and radiation dose reduction techniques are utilized as appropriate. CTDI: 26.17 DLP: 1530.96 WID: COMPARISON: CT ABD/PEL on DOS: 10/07/2024 FINDINGS: Lower Thorax: Unremarkable. Liver and Biliary system: Prior cholecystectomy, otherwise unremarkable. Spleen: Unremarkable. Adrenal Glands and Kidneys: Normal adrenal glands. There is a cyst in the lower pole left kidney. No hydronephrosis or nephrolithiasis. Pancreas and Retroperitoneum: Unremarkable. Aorta and Major Vessels: Unremarkable. Bowel, Mesentery and Peritoneal space: Normal caliber small and large bowel. Mild colonic diverticulosis. Normal appendix. No free air or fluid collection. Pelvis: Soft tissue at the origin of the left inguinal canal. Mild prostato megaly. Urinary bladder is mildly distended. There is no pelvic lymphadenopathy. Abdominal wall and Osseous Structures: Prior mesh repair of the midline anterior abdominal wall at the level of the umbilicus. No destructive osseous lesion. Minor lower thoracic and lumbar spondylosis. No destructive osseous lesion. IMPRESSION: 1. No hydronephrosis or nephrolithiasis. 2. No bowel obstruction, fluid collection, or free air. Normal appendix. 3. Mild prostatomegaly. 4. Mild colonic diverticulosis. 5. Prior mesh repair of the midline anterior abdominal wall at the level of the umbilicus and soft tissue plaque at the origin of the left inguinal canal ATED BY: WASHINGTON CABRERA MD DICTATED DATE/TIME: 01/06/252018 SIGNED BY: WASHINGTON CABRERA MD SIGNED DATE/TIME: 01/06/252018 CC: CBC reviewed without any significant abnormalities BMP reviewed without any significant abnormalities CT abdomen/pelvis without contrast reviewed Urinalysis reviewed without any significant abnormalities Hep-Lock IV ordered Toradol 30 mg IV ordered Zofran 4 mg p.o. ordered NS 1 liter IV ordered Patient had improvement in symptoms, vitals stable, denied any nausea and able to urinate without difficulty prior to discharge Advised to drink plenty of fluids Advised to follow up with PCP and urologist in 1-2 days Advised to return to ER immediately if symptoms Upon discharge, patient requested social work consult for housing resources. Patient medically cleared, agreeable to wait in ER lobby and stable for discharge pending social work consult tomorrow morning for housing resources Patient verbalized understanding and agreeable with current plan of care Images Reviewed?: Images reviewed and evaluated by me Time of 1ST Reevaluation: 19:47 Reevaluation 1ST: N/A Time of 2ND Reevaluation: 22:15 Patient Education/Counseling: Diagnosis, Treatment, Prognosis, Need For Follow Up Family Education/Counseling: No Family Present SEPSIS Sepsis Screen Date sepsis recognized/suspect: Jan 06, 2025 Time Sepsis recognized/suspect: 1758 Recent Procedure: No On Antibiotic Therapy: No Respiratory Rate >20: No Heart Rate >90: No Temp<36 C (96.8 F) or >38.3 C: No SBP <90 or MAP <65 mmHG: No New Acute Mental Status Change: No Is the patient on CPAP, BIPAP,: No Physician Orders Ct Ab Pel Wo Con-No Oral Or Iv (01/06/25 19:33) Heplock Iv (01/06/25 ) Urine Bacterial Culture (01/06/25 19:33) * Splitting Machine Feeder Consult (01/07/25 ) Vital Signs Date Time Temp Pulse Resp B/P (MAP) Pulse Ox O2 Delivery O2 Flow Rate FiO2 01/06/25 20:29 98.3 63 18 108/74 (85) 95 98.3 01/06/25 17:56 97.5 78 16 131/80 100 97.5 Laboratory Tests Test 01/06/25 19:58 White Blood Count 7.5 10^3/uL (4.4-10.8) Medications Medications Dose Ordered Sig/Wendy Route Start Time Stop Time Status Last Admin Dose Admin Ketorolac Tromethamine 30 mg ONCE ONCE IV 01/06/25 19:45 01/06/25 19:46 DC 01/06/25 19:45 Ondansetron HCl 4 mg ONCE ONCE PO 01/06/25 19:45 01/06/25 19:46 DC 01/06/25 20:30 Sodium Chloride 1,000 ml @ 1,000 mls/hr Q1H ONCE IV 01/06/25 20:30 01/06/25 21:29 DC 01/06/25 20:36 Departure 1 Departure Time of Disposition: 22:17 Impression: Primary Impression: Dysuria Additional Impressions: Urinary hesitancy Bilateral flank pain Disposition: 01 HOME / SELF CARE / HOMELESS Condition: Stable Discharged With: Friend Critical Care Note Critical Care Time?: No Stability Stability form required: No Heart Score Heart Score: Heart Score Response (Comments) Value History N/A 0 EKG N/A 0 Age N/A 0 Risk Factors N/A 0 Troponin N/A 0 Total 0 LISBETH CESPEDES Jan 06, 2025 19:47
[2025-01-06 20:10] LABS: Hematocrit 44.3 % (41.0-53.0); Hemoglobin 15.5 g/dL (13.5-17.5); Mean Corpuscular Hemoglobin 31.6 pg (28.0-32.0); Mean Corpuscular Volume 90.4 fL (80.0-100.0); Nucleated Red Blood Cells % 0.2 %
[2025-01-06 20:20] LABS: Potassium 4.0 mmol/L (3.5-5.1)
[2025-01-06 20:21] LABS: Anion Gap 9 (5-15); Carbon Dioxide 28 mmol/L (20-31)
[2025-01-06 20:22] LABS: Calcium 9.5 mg/dL (8.7-10.4)
--- NOTE | 2025-01-06 20:22 | DVH ---
CLINICAL HISTORY: bilateral flank pain TECHNIQUE: CT of the abdomen and pelvis was performed without intravenous contrast. This exam was performed according to our departmental dose optimization program. Up-to-date CT equipment and radiation dose reduction techniques are utilized as appropriate. CTDI: 26.17 DLP: 1530.96 WID: COMPARISON: CT ABD/PEL on DOS: 10/07/2024 FINDINGS: Lower Thorax: Unremarkable. Liver and Biliary system: Prior cholecystectomy, otherwise unremarkable. Spleen: Unremarkable. Adrenal Glands and Kidneys: Normal adrenal glands. There is a cyst in the lower pole left kidney. No hydronephrosis or nephrolithiasis. Pancreas and Retroperitoneum: Unremarkable. Aorta and Major Vessels: Unremarkable. Bowel, Mesentery and Peritoneal space: Normal caliber small and large bowel. Mild colonic diverticulosis. Normal appendix. No free air or fluid collection. Pelvis: Soft tissue at the origin of the left inguinal canal. Mild prostatomegaly. Urinary bladder is mildly distended. There is no pelvic lymphadenopathy. Abdominal wall and Osseous Structures: Prior mesh repair of the midline anterior abdominal wall at the level of the umbilicus. No destructive osseous lesion. Minor lower thoracic and lumbar spondylosis. No destructive osseous lesion. IMPRESSION: 1. No hydronephrosis or nephrolithiasis. 2. No bowel obstruction, fluid collection, or free air. Normal appendix. 3. Mild prostatomegaly. 4. Mild colonic diverticulosis. 5. Prior mesh repair of the midline anterior abdominal wall at the level of the umbilicus and soft tissue plaque at the origin of the left inguinal canal
[2025-01-06 20:26] LABS: Glucose 98 mg/dL (74-106)
[2025-01-06 20:27] LABS: BUN/Creatinine Ratio 9.7 (10.0-20.0); Blood Urea Nitrogen 12 mg/dL (9-23); Chloride 109 mmol/L (98-107); Sodium 146 mmol/L (136-145)
[2025-01-06 20:29] VITALS: BP 108/74; PULSE 63; RESP 18; TEMP 98.3; O2SAT 95
[2025-01-06] MEDS: ONDANSETRON ODT 4 MG TAB PO ONE (20:30)
[2025-01-06] MEDS: SODIUM CHLORIDE 0.9% 1,000 ML IV ONE (20:36)
[2025-01-06 22:06] LABS: Urine Protein, UAD Negative (Negative)
== END 2025-01-06 22:25 | disposition home or self-care (01) ==
LOC: ER 17:47 → EDUNIT# 17:47 → ER 22:25
DX: N40.1 Benign prostatic hyperplasia with lower urinary tract symptoms (principal); R10.A3 Flank pain, bilateral; R35.0 Frequency of micturition; I10 Essential (primary) hypertension; E11.9 Type 2 diabetes mellitus without complications; J44.89 Other specified chronic obstructive pulmonary disease; Z87.442 Personal history of urinary calculi; Z90.49 Acquired absence of other specified parts of digestive tract; Z98.890 Other specified postprocedural states; Z88.5 Allergy status to narcotic agent; Z88.8 Allergy status to other drugs, medicaments and biological substances
CPT/HCPCS: 36415; 74176; 80048; 81001; 85025; 87086; 96361; 96374; 99285; J1885; J7030; Q0162

== ENCOUNTER 2025-01-21 07:50 | Emergency (ER) | payer MEDICAID ==
[~2025-01-21] VITALS: Ht 182.9 cm; Wt 104.5 kg
[2025-01-21 09:55] LABS: Hematocrit 51.4 % (41.0-53.0); Hemoglobin 17.5 g/dL (13.5-17.5); Mean Corpuscular Hemoglobin 30.6 pg (28.0-32.0); Mean Corpuscular Volume 90.0 fL (80.0-100.0); Nucleated Red Blood Cells % 0.1 %
--- NOTE | 2025-01-21 10:01 | ED.PDOC ---
History of Present Illness HPI Comments Patient is a 49-year-old male with past medical history of diabetes, COPD, seizure disorder, hypertension, CKD? , left-sided nephrolithiasis, left buttock abscess growing MRSA s/p I&D, who comes in due to left-sided flank pain and feelings of depression. According to the patient, he has been experiencing a le ft-sided flank pain for the past 2 days, per patient he has just not been feeling well over the last few days, describes a general sensation of malaise. Moreover, patient notes that he feels depressed, he feels like his stress related to his illnesses is accumulating, patient notes "the devil is affecting my health", that he has felt like he wanted to jump in front of a car as he misses his family during the holidays and feels very stressed. On review of systems patient is complaining of fever, chills, sore throat, nausea, vomiting, dysuria and burning micturition. Past medical history:diabetes, COPD, seizure disorder, hypertension, CKD? , left-sided nephrolithiasis, left buttock abscess growing MRSA s/p I&D Past surgical history: I and D left buttock abscess, cholecystectomy, left inguinal and umbilical hernia repair Past Hospitalization: Discharged from the [facility] on 01/06/2025 after being treated for MRSA in the left buttock wound. Social & Personal history: Lives in a recuperative care facility. Quit smoking 2 years ago prior to that 10 pack year smoking history. Quit drinking alcohol 2 years ago prior to that heavy use. Denies using any drugs. Patient seen and examined at bedside. Patient is alert and oriented to time, place person and responding to all questions. General: Fever, chills Eyes: No Pain, No Vision change, No Conjunctivae inflammation, No Eyelid inflammation, No Other, No Redness ENT: No Ear pain, No Ear discharge, No Nose pain, No Nose discharge, No Nose congestion, No Mouth pain, No Mouth swelling, Throat pain, No Throat swelling, No Other Cardiovascular: No Chest Pain, No Palpitations, No Orthopnea, No Paroxysmal No Dyspnea, No Edema, No Lt Headedness, No Other Respiratory: Cough, No Dry, No Shortness of breath, No SOB with exertion, No Wheezing, No Hemoptysis, No Pleuritic Pain, No Sputum, No Other Gastrointestinal: Nausea, Vomiting, No Abdominal Pain, No Diarrhea, No Consti pation, No Melena, No Hematochezia, No Other Genitourinary: Dysuria, Frequency, No Incontinence, No Hematuria, No Retention, No Other Musculoskeletal: No other, No neck pain, No shoulder pain, No arm pain, No back pain, No hand pain, No leg pain, No foot pain Skin: No Rash, No Lesions, No Jaundice, No Bruising, No Other Chief Complaint: Back Pain Time Seen by MD: 09:00 Primary Care Provider: UNKNOWN Allergies: Coded Allergies: Fentanyl (Verified Allergy, Unknown, 11/25/19) Morphine (Verified Allergy, Unknown, 11/25/19) Shellfish Allergy (Unverified Allergy, Unknown, 11/03/24) Uncoded Allergies: contrast (Allergy, Unknown, 10/18/24) Home Meds Active Scripts Escitalopram Oxalate (Lexapro) 10 Mg Tab, 1 TAB PO DAILY for 30 Days, #30 TAB 3 Refills Prov:NANDO SCHOFIELD MD 01/23/25 Clindamycin Hcl (Clindamycin Hcl) 300 Mg Cap, 1 CAP PO TID, #30 CAP Prov:BALA RAMOS MD 01/06/25 Amoxicillin Trihydrate (Amoxicillin) 500 Mg Cap, 1 CAP PO TID for 10 Days, #30 CAP Prov:BALA RAMOS MD 01/06/25 Doxycycline Monohydrate (Doxycycline Monohydrate) 100 Mg Cap, 1 CAP PO BID for 7 Days, #28 CAP Prov:CHERY MCKEON MD 12/15/24 Linezolid (Zyvox) 600 Mg Tab, 600 MG PO BID for 10 Days, #20 TAB Prov:BUCK BAKER 11/27/24 Tamsulosin Hcl (Flomax) 0.4 Mg Cap, 0.8 MG PO QPM for 30 Days, #30 CAP Prov:BUCK BAKER 11/27/24 Hydrocodone-Acetaminophen (Hydrocodone Bitartrate/AC 5-325 mg) 1 Tab Tab, 1 TAB PO TIDP PRN for 7 Days, #21 TAB 0 Refills Prov:JANET GOOD MD 11/05/24 Hydrocodone-Acetaminophen (Hydrocodone Bitartrate/AC 5-325 mg) 1 Tab Tab, 1 TAB PO Q4HP PRN, #20 TAB Prov:KE PARKER MD 11/01/24 Alprazolam (Xanax) 1 Mg Tab, 1 TAB PO BID PRN, #30 TAB Prov:SIVA TINOCO MD 10/22/24 Ibuprofen (Ibuprofen) 800 Mg Tab, 1 TAB PO TID, #30 TAB Prov:LEONEL GUTIERREZ 10/01/24 Azithromycin (Azithromycin) 500 Mg Tab, 1 TAB PO DAILY, #5 TAB Prov:LEONEL GUTIERREZ 08/28/24 Ibuprofen (Ibuprofen) 800 Mg Tab, 1 TAB PO QID, #30 TAB Prov:LEONEL GUTIERREZ 08/28/24 Mode of Arrival: EMS Past Medical History PAST MEDICAL HISTORY: Asthma, COPD, DM, HTN, Kidney Stones, Seizures Surgical History: Denies all surgeries Family History Family History: Unknown, Family hx of heart taz Social History Smoker: Non-Smoker Alcohol: Sober Drugs: Denies Drug Use Lives In: Home Physical Exam General Appearance: Mild Distress HEENT: Normal ENT Inspection, PERRL/EOMI, Pharynx Normal Neck: None, Non-Tender, Normal, Normal Inspection Respiratory: Lungs Clear, No Accessory Muscle Use, No Respiratory Distress, Normal Breath Sounds Cardiovascular: No Murmur, No Gallop, Normal Peripheral Pulses, Regular Rate/Rhythm Breast Exam: Deferred Gastrointestinal: Diffuse, No Pulsatile Mass, Normal Bowel Sounds, Tenderness, Other (Bilateral costovertebral angle tenderness to palpation) Genitalia: Deferred Pelvic: Deferred Rectal: Rectal Exam not done Extremities: No calf tenderness, Normal inspection, Normal range of motion, Non-tender, No pedal edema Neurologic: Alert, No Motor Deficits, No Sensory Deficits Cerebellar Function: Normal Reflexes: NOT DONE Skin: Dry, Normal Color, Warm Peripheral Pulses: 2+ dorsalis pedis (R), 2+ dorsalis pedis (L) Lymphatic: NOT DONE Was a procedure done? Was a procedure done?: No Differential Dx Considerations may include: Urinary tract infection Nephrolithiasis Depression Anxiety X-Ray, Labs, Meds, VS Vital Signs Date Time Temp Pulse Resp B/P (MAP) Pulse Ox O2 Delivery O2 Flow Rate FiO2 01/23/25 16:34 97.9 69 17 124/73 (90) 98 97.9 01/23/25 12:33 97.4 60 17 129/73 (91) 99 97.4 01/23/25 10:04 98.9 68 17 129/79 (96) 99 98.9 01/23/25 07:58 97.7 60 18 130/79 (96) 96 97.7 01/22/25 19:58 98.1 78 18 149/91 (110) 98 98.1 01/22/25 14:11 98.2 70 17 125/87 (100) 100 98.2 01/22/25 07:29 97.7 69 19 121/85 (97) 98 97.7 01/22/25 04:30 Room Air* 0 21 01/22/25 04:29 97.7 82 16 117/86 (96) 97 97.7 01/21/25 17:40 97.9 72 16 112/75 (87) 97 97.9 01/21/25 14:50 98.1 95 16 126/80 (95) 98 98.1 01/21/25 12:34 97.8 86 18 145/79 (101) 96 97.8 01/21/25 08:23 97.6 98 20 110/78 95 97.6 Lab Test 01/21/25 13:05 01/21/25 09:45 Range/Units Urine Color Yellow Yellow Urine Clarity Clear Clear Urine pH 6.0 5.0-9.0 Urine Specific [place] 1.036 H 1.001-1.035 Urine Protein Trace H Negative Urine Ketones Trace Negative Urine Blood Negative Negative /uL Urine Nitrite Negative Negative Urine Bilirubin Negative Negative Urine Urobilinogen Normal Negative mg/dL Urine Leukocyte Esterase Negative Negative /uL Urine RBC 3 0 - 3 /hpf Urine Microscopic WBC 5 H 0-3 /HPF Urine Squamous Epithelial Cells Few <5 /hpf Urine Bacteria None seen None Seen /hpf Urine Mucus Few None Seen Urine Glucose 1+ H Normal mg/dL Urine Opiates Screen Neg NEGATIVE Urine Fentanyl Screen Neg NEGATIVE Urine Barbiturates Screen Neg NEGATIVE Urine Phencyclidine Screen Neg NEGATIVE Urine Amphetamines Screen Neg NEGATIVE Urine Benzodiazepines Screen Neg NEGATIVE Urine Cocaine Screen Neg NEGATIVE Urine Cannabinoids Screen Neg NEGATIVE White Blood Count 10.3 4.4-10.8 10^3/uL Red Blood Count 5.72 4.5-5.90 10^6/uL Hemoglobin 17.5 13.5-17.5 g/dL Hematocrit 51.4 41.0-53.0 % Mean Corpuscular Volume 90.0 80.0-100.0 fL Mean Corpuscular Hemoglobin 30.6 28.0-32.0 pg Mean Corpuscular Hemoglobin Concent 34.0 32.0-36.0 g/dL Red Cell Distribution Width 13.6 11.8-14.3 % Platelet Count 185 140-450 10^3/uL Mean Platelet Volume 9.5 6.9-10.8 fL Neutrophils (%) (Auto) 74.5 37.0-80.0 % Lymphocytes (%) (Auto) 16.2 10.0-50.0 % Monocytes (%) (Auto) 8.1 0.0-12.0 % Eosinophils (%) (Auto) 0.9 0.0-7.0 % Basophils (%) (Auto) 0.3 0.0-2.0 % Neutrophils # (Auto) 7.7 1.6-8.6 10 ^3/uL Lymphocytes # (Auto) 1.7 0.4-5.4 10 ^3/uL Monocytes # (Auto) 0.8 0-1.3 10 ^3/uL Eosinophils # (Auto) 0.1 0-0.8 10 ^3/uL Basophils # (Auto) 0 0-0.2 10 ^3/uL Nucleated Red Blood Cells 0.1 % Sodium Level 142 136-145 mmol/L Potassium Level 4.0 3.5-5.1 mmol/L Chloride Level 108 H 98-107 mmol/L Carbon Dioxide Level 27 20-31 mmol/L Anion Gap 7 5-15 Blood Urea Nitrogen 14 9-23 mg/dL Creatinine 1.03 0.700-1.30 mg/dL Glomerular Filtration Rate Calc 88 >90 mL/min BUN/Creatinine Ratio 13.6 10.0-20.0 Serum Glucose 92 74-106 mg/dL Calcium Level 9.6 8.7-10.4 mg/dL Salicylates Level < 3.0 -30 mg/dL Acetaminophen Level 7.0 L 10.0-20.0 UG/ML Plasma/Serum Blood Alcohol < 3.0 <10 mg/dL Time of 1ST Reevaluation: 11:00 Reevaluation 1ST: Unchanged Patient Education/Counseling: Diagnosis, Treatment, Prognosis, Need For Follow Up Family Education/Counseling: No Family Present SEPSIS Sepsis Screen Date sepsis recognized/suspect: Jan 21, 2025 Time Sepsis recognized/suspect: 0756 Recent Procedure: No On Antibiotic Therapy: No Respiratory Rate >20: No Heart Rate >90: Yes Temp<36 C (96.8 F) or >38.3 C: No SBP <90 or MAP <65 mmHG: No New Acute Mental Status Change: No Is the patient on CPAP, BIPAP,: No Physician Orders Soc Telemed Psych Consult (01/21/25 09:22) * Drafter Plumbing Consult (01/22/25 ) Vital Signs Date Time Temp Pulse Resp B/P (MAP) Pulse Ox O2 Delivery O2 Flow Rate FiO2 01/23/25 16:34 97.9 69 17 124/73 (90) 98 97.9 01/23/25 12:33 97.4 60 17 129/73 (91) 99 97.4 01/23/25 10:04 98.9 68 17 129/79 (96) 99 98.9 01/23/25 07:58 97.7 60 18 130/79 (96) 96 97.7 01/22/25 19:58 98.1 78 18 149/91 (110) 98 98.1 01/22/25 14:11 98.2 70 17 125/87 (100) 100 98.2 01/22/25 07:29 97.7 69 19 121/85 (97) 98 97.7 01/22/25 04:30 Room Air* 0 21 01/22/25 04:29 97.7 82 16 117/86 (96) 97 97.7 01/21/25 17:40 97.9 72 16 112/75 (87) 97 97.9 01/21/25 14:50 98.1 95 16 126/80 (95) 98 98.1 01/21/25 12:34 97.8 86 18 145/79 (101) 96 97.8 01/21/25 08:23 97.6 98 20 110/78 95 97.6 Laboratory Tests Test 01/21/25 09:45 White Blood Count 10.3 10^3/uL (4.4-10.8) Departure 1 Departure Time of Disposition: 09:39 (Patient cleared for discharge by psychiatry. Patient we will have a social and political studies professor evaluated patient we will discharge patient home) Impression: Primary Impression: Depression Qualified Codes: F32.A - Depression, unspecified Additional Impression: UTI (urinary tract infection) Qualified Codes: N39.0 - Urinary tract infection, site not specified Disposition: HOME / SELF CARE / HOMELESS Condition: Stable Additional Instructions: You were prescribed Lexapro. Please take as directed e-Prescriptions Escitalopram Oxalate (Lexapro) 10 Mg Tab 1 TAB PO DAILY for 30 Days, #30 TAB 3 Refills Prov: NANDO SCHOFIELD MD 01/23/25 [facility] Jan 21, [facility]25 10:00 NANDO SCHOFIELD MD Jan 23, 2025 09:41
[2025-01-21 10:05] LABS: Potassium 4.0 mmol/L (3.5-5.1); Sodium 142 mmol/L (136-145)
[2025-01-21 10:07] LABS: Anion Gap 7 (5-15); Calcium 9.6 mg/dL (8.7-10.4); Carbon Dioxide 27 mmol/L (20-31); Chloride 108 mmol/L (98-107)
[2025-01-21 10:11] LABS: BUN/Creatinine Ratio 13.6 (10.0-20.0); Blood Urea Nitrogen 14 mg/dL (9-23); Glucose 92 mg/dL (74-106)
[2025-01-21 10:21] LABS: Acetaminophen 7.0 UG/ML (10.0-20.0); Salicylate < 3.0 mg/dL (-30)
[2025-01-21] MEDS: KETOROLAC TROMETH 30 MG/ML 1ML VIAL IM ONE (12:34)
[2025-01-21 16:42] LABS: Urine Protein, UAD TRACE (Negative)
[2025-01-21 16:45] LABS: Amphetamine Screen, Urine Neg (NEGATIVE); Barbiturate Scree,Urine Neg (NEGATIVE); Benzodiazephine Screen, Urine Neg (NEGATIVE); Cannabinoid Screen, Urine Neg (NEGATIVE); Cocaine Screen, Urine Neg (NEGATIVE); Opiate Scree,Urine Neg (NEGATIVE); Phencyclidine Screen, Urine Neg (NEGATIVE)
--- NOTE | 2025-01-21 18:20 | DVHINCON2 ---
Date of Service if different f: Jan 21, 2025 Consultation ([place]) Labs Laboratory Tests Test 01/21/25 09:45 01/21/25 13:05 White Blood Count 10.3 10^3/uL (4.4-10.8) Red Blood Count 5.72 10^6/uL (4.5-5.90) Hemoglobin 17.5 g/dL (13.5-17.5) Hematocrit 51.4 % (41.0-53.0) Mean Corpuscular Volume 90.0 fL (80.0-100.0) Mean Corpuscular Hemoglobin 30.6 pg (28.0-32.0) Mean Corpuscular Hemoglobin Concent 34.0 g/dL (32.0-36.0) Red Cell Distribution Width 13.6 % (11.8-14.3) Platelet Count 185 10^3/uL (140-450) Mean Platelet Volume 9.5 fL (6.9-10.8) Neutrophils (%) (Auto) 74.5 % (37.0-80.0) Lymphocytes (%) (Auto) 16.2 % (10.0-50.0) Monocytes (%) (Auto) 8.1 % (0.0-12.0) Eosinophils (%) (Auto) 0.9 % (0.0-7.0) Basophils (%) (Auto) 0.3 % (0.0-2.0) Neutrophils # (Auto) 7.7 10 ^3/uL (1.6-8.6) Lymphocytes # (Auto) 1.7 10 ^3/uL (0.4-5.4) Monocytes # (Auto) 0.8 10 ^3/uL (0-1.3) Eosinophils # (Auto) 0.1 10 ^3/uL (0-0.8) Basophils # (Auto) 0 10 ^3/uL (0-0.2) Nucleated Red Blood Cells 0.1 % Sodium Level 142 mmol/L (136-145) Potassium Level 4.0 mmol/L (3.5-5.1) Chloride Level 108 mmol/L (98-107) Carbon Dioxide Level 27 mmol/L (20-31) Anion Gap 7 (5-15) Blood Urea Nitrogen 14 mg/dL (9-23) Creatinine 1.03 mg/dL (0.700-1.30) Glomerular Filtration Rate Calc 88 mL/min (>90) BUN/Creatinine Ratio 13.6 (10.0-20.0) Serum Glucose 92 mg/dL (74-106) Calcium Level 9.6 mg/dL (8.7-10.4) Salicylates Level < 3.0 mg/dL (-30) Acetaminophen Level 7.0 UG/ML (10.0-20.0) Plasma/Serum Blood Alcohol < 3.0 mg/dL (<10) Urine Color Yellow (Yellow) Urine Clarity Clear (Clear) Urine pH 6.0 (5.0-9.0) Urine Specific [place] 1.036 (1.001-1.035) Urine Protein Trace (Negative) Urine Ketones Trace (Negative) Urine Blood Negative /uL (Negative) Urine Nitrite Negative (Negative) Urine Bilirubin Negative (Negative) Urine Urobilinogen Normal mg/dL (Negative) Urine Leukocyte Esterase Negative /uL (Negative) Urine RBC 3 /hpf (0 - 3) Urine Microscopic WBC 5 /HPF (0-3) Urine Squamous Epithelial Cells Few /hpf (<5) Urine Bacteria None seen /hpf (None Seen) Urine Mucus Few (None Seen) Urine Glucose 1+ mg/dL (Normal) Urine Opiates Screen Neg (NEGATIVE) Urine Fentanyl Screen Neg (NEGATIVE) Urine Barbiturates Screen Neg (NEGATIVE) Urine Phencyclidine Screen Neg (NEGATIVE) Urine Amphetamines Screen Neg (NEGATIVE) Urine Benzodiazepines Screen Neg (NEGATIVE) Urine Cocaine Screen Neg (NEGATIVE) Urine Cannabinoids Screen Neg (NEGATIVE) Vitals Vital Signs Date Time Temp Pulse Resp B/P (MAP) Pulse Ox O2 Delivery O2 Flow Rate FiO2 01/21/25 17:40 97.9 72 16 112/75 (87) 97 97.9 History of Present Illness Called for telepsych, patient refused Assessment/Diagnosis/Plan Reviewed: Consults SHYAM VILLELA DNP Jan 21, 2025 18:20
[2025-01-22] MEDS: KETOROLAC TROMETH 30 MG/ML 1ML VIAL IV ONE (06:07)
--- NOTE | 2025-01-22 20:19 | DVHINCON2 ---
Date of Service if different f: Jan 22, 2025 Consultation ([facility]) Labs Laboratory Tests Test 01/21/25 09:45 01/21/25 13:05 White Blood Count 10.3 10^3/uL (4.4-10.8) Red Blood Count 5.72 10^6/uL (4.5-5.90) Hemoglobin 17.5 g/dL (13.5-17.5) Hematocrit 51.4 % (41.0-53.0) Mean Corpuscular Volume 90.0 fL (80.0-100.0) Mean Corpuscular Hemoglobin 30.6 pg (28.0-32.0) Mean Corpuscular Hemoglobin Concent 34.0 g/dL (32.0-36.0) Red Cell Distribution Width 13.6 % (11.8-14.3) Platelet Count 185 10^3/uL (140-450) Mean Platelet Volume 9.5 fL (6.9-10.8) Neutrophils (%) (Auto) 74.5 % (37.0-80.0) Lymphocytes (%) (Auto) 16.2 % (10.0-50.0) Monocytes (%) (Auto) 8.1 % (0.0-12.0) Eosinophils (%) (Auto) 0.9 % (0.0-7.0) Basophils (%) (Auto) 0.3 % (0.0-2.0) Neutrophils # (Auto) 7.7 10 ^3/uL (1.6-8.6) Lymphocytes # (Auto) 1.7 10 ^3/uL (0.4-5.4) Monocytes # (Auto) 0.8 10 ^3/uL (0-1.3) Eosinophils # (Auto) 0.1 10 ^3/uL (0-0.8) Basophils # (Auto) 0 10 ^3/uL (0-0.2) Nucleated Red Blood Cells 0.1 % Sodium Level 142 mmol/L (136-145) Potassium Level 4.0 mmol/L (3.5-5.1) Chloride Level 108 mmol/L (98-107) Carbon Dioxide Level 27 mmol/L (20-31) Anion Gap 7 (5-15) Blood Urea Nitrogen 14 mg/dL (9-23) Creatinine 1.03 mg/dL (0.700-1.30) Glomerular Filtration Rate Calc 88 mL/min (>90) BUN/Creatinine Ratio 13.6 (10.0-20.0) Serum Glucose 92 mg/dL (74-106) Calcium Level 9.6 mg/dL (8.7-10.4) Salicylates Level < 3.0 mg/dL (-30) Acetaminophen Level 7.0 UG/ML (10.0-20.0) Plasma/Serum Blood Alcohol < 3.0 mg/dL (<10) Urine Color Yellow (Yellow) Urine Clarity Clear (Clear) Urine pH 6.0 (5.0-9.0) Urine Specific [place] 1.036 (1.001-1.035) Urine Protein Trace (Negative) Urine Ketones Trace (Negative) Urine Blood Negative /uL (Negative) Urine Nitrite Negative (Negative) Urine Bilirubin Negative (Negative) Urine Urobilinogen Normal mg/dL (Negative) Urine Leukocyte Esterase Negative /uL (Negative) Urine RBC 3 /hpf (0 - 3) Urine Microscopic WBC 5 /HPF (0-3) Urine Squamous Epithelial Cells Few /hpf (<5) Urine Bacteria None seen /hpf (None Seen) Urine Mucus Few (None Seen) Urine Glucose 1+ mg/dL (Normal) Urine Opiates Screen Neg (NEGATIVE) Urine Fentanyl Screen Neg (NEGATIVE) Urine Barbiturates Screen Neg (NEGATIVE) Urine Phencyclidine Screen Neg (NEGATIVE) Urine Amphetamines Screen Neg (NEGATIVE) Urine Benzodiazepines Screen Neg (NEGATIVE) Urine Cocaine Screen Neg (NEGATIVE) Urine Cannabinoids Screen Neg (NEGATIVE) Appetite: Good Appearance: Stated age, Groomed Psychomotor activity: WNL Behavioral: Cooperative Eye contact: Appropriate Speech: WNL Affect: Mood Congruent Mood: Depressed, Anxious Thought processes: Linear/Goal-directed Thought content: WNL, Hallucinations (auditory) Suicidal ideations: Absent Homicidal ideations: Absent Orientation: Person, Time, Situation Memory intact: Recent Intellect: Average Abstractability: WNL Concentration: Adequate Attention: Adequate Judgement: Limited Insight: Limited Vitals Vital Signs Date Time Temp Pulse Resp B/P (MAP) Pulse Ox O2 Delivery O2 Flow Rate FiO2 01/22/25 14:11 98.2 70 17 125/87 (100) 100 98.2 01/22/25 04:30 Room Air* 0 21 Treatment plan discussed: With staff Medication adjusted: Yes History of Present Illness Reason for Consult : He reports feeling depressed HPI : This is a 49-year-old male reporting prior history of depression. Patient presents here from [facility] facility for back pain and depressed mood. Patient came to ED on 01/22/25, psych consult requested, but he refused. Patient is evaluated via telepsychiatry. [facility] because of disputes with roommates and staff. He reports his 2 roommates were using substances, methamphetamine and because of his health conditions, he does not want to be around that. He did speak with staff and they did not want to change his room so he decided to leave. He reports battling depression and waiting here in the ED for 2 days without a bed. He wants to be given a bed and not sitting out in the cold. He reports recent blood infection and later discharged to the first [facility] facility but they closed, and 4 days ago, received new facility. He reports sometimes having suicidal ideation and previously had thoughts to jump in front of car, but now denies. He reports sometimes feels like he hears the devil or devil is coming to get him. He did not elaborate and unclear if these were true hallucinations, and did not appear to respond to unseen stimuli. He reports wanting "the 72 or 48 hour hold" and wants a bed here. He does not want sack lunch, wants a hot meal. He sometimes feels depressed and hopeless especially regarding unstable housing or medical problems. Discussed 72-hour hold means a danger to himself/others or GD and transfer to a psychiatric facility, he then refuses and walks out of the room. Per nurse, he refuses to continue interview. Nurse did ask him again, and he denies suicidal/h omicidal ideation. He denies auditory/visual hallucinations or paranoid thoughts. Past Psychiatric History : He reports hx of anxiety after blood infection and PCP prescribed Xanax in the past. He denies past psych admissions, holds or suicide attempts Past Medical History : He reports history of diabetes, COPD, seizure, HTN, kidney stones. Social History : He was living in [facility] facility unclear if able to return. He reports history of substance use but sober 2 years, guarded regarding history of substance use. He denies any known family history. Unemployed and receiving government assistance Diagnosis Unspecified mood disorder, generalized anxiety disorder Plan patient denies suicidal/homicidal, appears his concerns are regarding stable housing [facility], social media campaign manager to assist with new housing or shelters Recommend lexapro 10mg po daily for mood and anxiety Provide outpatient resources for follow up. Assessment/Diagnosis/Plan Reviewed: Consults SHYAM VILLELA DNP Jan 22, 2025 20:19
[2025-01-23] MEDS: GOLYTELY 4L KIT PO ONE (03:31)
[2025-01-23] MEDS: KETOROLAC TROMETH 30 MG/ML 1ML VIAL IV ONE (03:31)
[2025-01-23] MEDS ORDERED: ESCI10TA PO (09:40)
[2025-01-23] MEDS: ACETAMINOPHEN 325 MG TAB PO ONE (12:53)
[2025-01-23 16:34] VITALS: BP 124/73; PULSE 69; RESP 17; TEMP 97.9; O2SAT 98
== END 2025-01-23 09:41 | disposition home or self-care (01) ==
LOC: ER 07:50 → EDBD 07:50 → EDUNIT# 07:50 → ER 01-23 09:41
DX: F32.A Depression, unspecified (principal); N39.0 Urinary tract infection, site not specified; E11.9 Type 2 diabetes mellitus without complications; I10 Essential (primary) hypertension; J44.89 Other specified chronic obstructive pulmonary disease; Z79.899 Other long term (current) drug therapy; Z79.1 Long term (current) use of non-steroidal anti-inflammatories (NSAID); Z87.442 Personal history of urinary calculi; Z90.49 Acquired absence of other specified parts of digestive tract; Z88.5 Allergy status to narcotic agent
CPT/HCPCS: 36415; 80048; 80307; 80320; 80329; 81001; 85025; 96372; 96374; 96376; 99285; J1885